=== PATIENT | female | born 1990 | race Two or more races ===

== ENCOUNTER 2024-07-05 20:57 | Emergency (ER) | payer OTHER ==
[~2024-07-05] VITALS: Ht 160 cm; Wt 61.7 kg
[~2024-07-05 20:57] MED LIST: PRENATABS FA TA1 TAB PO
[2024-07-05] MEDS ORDERED: DIPHENOXYLATE HCL/ATROPINE 1 UDTAB TABLET PO STA (23:06)
== END 2024-07-06 00:15 | disposition home or self-care (01) ==
LOC: ER 20:58
DX: K30 Functional dyspepsia (principal); R19.7 Diarrhea, unspecified; Z88.2 Allergy status to sulfonamides

== ENCOUNTER 2024-10-28 00:48 | Emergency (ER) | payer OTHER ==
[~2024-10-28] VITALS: Ht 157.5 cm; Wt 60.3 kg
[2024-10-28 01:04] VITALS: BP 106/68; O2SAT 100
[2024-10-28 01:38] LABS: BASO % 0.6 % (0.1-1.2); EOS # 0.06 (0.04-0.54); EOS % 0.6 % (0.7-7.0); LYMPH # 2.11 (1.18-3.74); LYMPH % 21.3 % (19.3-53.1); MEAN PLATELET VOLUME 10.50 fl (9.4-12.4); MONO # 0.47 (0.24-0.82); MONO % 4.7 % (4.7-12.5); NEUT # 7.19 (1.56-6.13); NEUT % 72.6 % (34.0-71.1); RED CELL DISTRIBUTION WIDTH 12.9 % (11.6-14.4)
[2024-10-28 01:55] LABS: URINE APPEARANCE Clear; URINE BILIRRUBIN Negative (NEGATIVE); URINE BLOOD Negative; URINE COLOR Yellow; URINE GLUCOSE Negative (NEGATIVE); URINE KETONE Trace (NEGATIVE); URINE LEUKOCYTE Negative; URINE NITRATE Negative; URINE PROTEIN Negative (NEGATIVE); URINE UROBILINOGEN 1.0 E.U./dl
[2024-10-28 01:58] LABS: URINE BACTERIA 1322.4 uL (0.0-1933); URINE EPITHELIAL CELLS 30.4 uL (0.0-38.8); URINE RBC 5.1 uL (0.0-20.8); URINE WBC 3.9 uL (0.0-23.2)
[2024-10-28 02:03] LABS: URINE CAST 0.14 uL (0.0-1.40)
[2024-10-28] MEDS ORDERED: KETO10TA2 PO (03:49)
== END 2024-10-28 03:54 ==
LOC: ER 00:48
PROVIDERS: General Practice
DX: N83.02 Follicular cyst of left ovary (principal); R10.2 Pelvic and perineal pain; Z88.2 Allergy status to sulfonamides

== ENCOUNTER 2024-12-04 21:47 | Emergency (ER) | payer OTHER ==
[~2024-12-04] VITALS: Ht 157.5 cm; Wt 69.4 kg
[~2024-12-04 21:47] MED LIST changes: +KETO10TA2 PO
[2024-12-05] MEDS ORDERED: KETOROLAC TROMETHAMINE 60 MG VIAL IM ONE (01:17)
[2024-12-05] MEDS ORDERED: ORPHENADRINE CITRATE 30 MG/ML AMPUL ONE (01:17)
[2024-12-05] MEDS ORDERED: DEXAMETHASONE SODIUM PHOSPHATE 4 MG/ML VIAL ONE (01:18)
[2024-12-05] MEDS ORDERED: KETOROLAC TROMETHAMINE 60 MG VIAL IM STA (01:19)
[2024-12-05] MEDS ORDERED: DEXAMETHASONE SODIUM PHOSPHATE 4 MG/ML VIAL IM STA (01:20)
[2024-12-05] MEDS ORDERED: ORPHENADRINE CITRATE 30 MG/ML AMPUL IM STA (01:20)
== END 2024-12-05 01:29 | disposition home or self-care (01) ==
LOC: ER 21:47
DX: M62.830 Muscle spasm of back (principal); Z88.2 Allergy status to sulfonamides

== ENCOUNTER 2024-12-14 11:11 | Outpatient (CLI) | payer OTHER | END 2024-12-14 11:14 | disposition home or self-care (01) | LOC: SONOGRAMA 11:11 | DX: D17.9 Benign lipomatous neoplasm, unspecified (principal) ==